=== PATIENT | male | born 1970 | race Two or more races ===

== ENCOUNTER 2019-01-23 20:35 | Emergency (ER) | payer OTHER ==
[~2019-01-23] VITALS: Ht 182.9 cm; Wt 100.0 kg
[2019-01-23] MEDS ORDERED: IBUPROFEN 600 MG TABLET PO ONE (22:45)
[2019-01-23 23:50] VITALS: BP 140/88
== END 2019-01-23 23:53 | disposition home or self-care (01) ==
LOC: EMS 20:37
DX: S83.91XA Sprain of unspecified site of right knee, initial encounter (principal); M25.461 Effusion, right knee; X50.0XXA Overexertion from strenuous movement or load, initial encounter; Y93.89 Activity, other specified; Y92.89 Other specified places as the place of occurrence of the external cause; Y99.8 Other external cause status
CPT/HCPCS: 29505

== ENCOUNTER → 2021-10-31 | Outpatient (CLI) | payer OTHER | END | disposition home or self-care (01) | LOC: RADPV 08:24 | PROVIDERS: ATTEND Family Medicine | DX: K80.20 Calculus of gallbladder without cholecystitis without obstruction (principal); K76.0 Fatty (change of) liver, not elsewhere classified; N28.1 Cyst of kidney, acquired; R10.11 Right upper quadrant pain; Z86.19 Personal history of other infectious and parasitic diseases | CPT/HCPCS: 76700 ==

== ENCOUNTER 2021-12-02 15:51 | Inpatient (IN) | payer OTHER ==
[~2021-12-02] VITALS: Ht 185.4 cm; Wt 98.1 kg
[2021-12-02 17:10] LABS: COVID AG,FIA SOURCE NASOPHARYNGEAL
[2021-12-02 17:14] LABS: BASOPHILS % (AUTO) 0.7 % (0.0-2.0); EOSINOPHILS % (AUTO) 2.6 % (1.0-6.0); HEMATOCRIT 44.2 % (41-53); LYMPHOCYTES # (AUTO) 1.6 K/uL (1.0-4.8); LYMPHOCYTES % (AUTO) 23.9 % (22.0-44.0); MEAN CORPUSCULAR VOLUME 91 fL (80-100); MONOCYTES # (AUTO) 0.7 K/uL (0.1-1.0); MONOCYTES % (AUTO) 10.6 % (2.0-9.0); NEUTROPHILS # (AUTO) 4.1 K/uL (1.8-7.7); NEUTROPHILS % (AUTO) 62.2 % (40.0-70.0); PLATELET COUNT (AUTO) 208 K/uL (150-450); RED BLOOD CELL COUNT(AUTO) 4.85 MIL/uL (4.50-5.90); RED CELL DISTRIBUTION WIDTH 13.6 % (11.5-14.5)
[2021-12-02 17:22] LABS: APPEARANCE,URINE CLEAR (CLEAR); BILIRUBIN,URINE NEGATIVE (NEGATIVE); GLUCOSE, URINE (UA) NEGATIVE (NEGATIVE); KETONES,URINE TRACE mg/dL (NEGATIVE); LEUKOCYTE ESTERASE ,URINE NEGATIVE (NEGATIVE); NITRATE,URINE NEGATIVE (NEGATIVE); OCCULT BLOOD,URINE NEGATIVE (NEGATIVE); PROTEIN,URINE NEGATIVE (NEGATIVE); SPECIFIC GRAVITIY, URINE 1.006 (1.003-1.030); UROBILINOGEN,URINE <=1.0 mg/dL (<=1.0)
[2021-12-02 17:24] LABS: ANION GAP 9 mmol/L (8-16); CALCIUM, TOTAL 9.7 mg/dL (8.8-10.5); CARBON DIOXIDE 27 mmol/L (22-29); CHLORIDE 97 mmol/L (98-107); CREATININE 0.93 mg/dL (0.60-1.30); GLOMERULAR FILTR. RATE CALC > 60 mL/min (>60); GLUCOSE,RANDOM 102 mg/dL (70-110); POTASSIUM 4.6 mmol/L (3.5-5.1); SODIUM SERUM 133 mmol/L (136-145); UREA NITROGEN, BLOOD 12 mg/dL (7-18)
[2021-12-02 17:31] LABS: ALANINE AMINOTRANSFERASE 553 U/L (12-78); ALBUMIN 3.8 g/dL (3.4-5.0); ALKALINE PHOSPHATASE 527 U/L (46-116); ASPARTATE AMINOTRANSFERASE 153 U/L (15-37); LIPASE 454 U/L (73-393); TOTAL PROTEIN, SERUM 8.8 g/dL (6.4-8.2)
[2021-12-02 17:42] LABS: PHOSPHORUS 4.2 mg/dL (2.5-4.9)
[2021-12-02] MEDS ORDERED: IOHEXOL 350 MG/ML 100 ML VIAL ONE (17:47)
[2021-12-02] MEDS ORDERED: SODIUM CHLORIDE 0.9% 100 ML ONE (17:47)
[2021-12-02] MEDS ORDERED: SODIUM CHLORIDE 0.9% 1,000 ML IV ONE ×2 (18:00→21:45)
[2021-12-02 18:28] LABS: PLATELET MORPHOLOGY COMMENT LARGE PLTS PRESENT
[2021-12-02] MEDS ORDERED: PIPERACILLIN/TAZO 3.375 GM/D5W 50 ML IV ONE (19:00)
[2021-12-02] MEDS ORDERED: ONDANSETRON HCL 4 MG/2 ML VIAL IVP PRN ×2 (21:00→21:45)
[2021-12-02] MEDS ORDERED: ACETAMINOPHEN 325 MG TABLET PO PRN ×2 (21:00→21:45)
[2021-12-02] MEDS ORDERED: 0.9% SODIUM CHLORIDE 10 ML SYRINGE IVP PRN (21:00)
[2021-12-02] MEDS ORDERED: BISACODYL 10 MG RECTAL RECTAL SUPPOSITORY PR PRN (21:45)
[2021-12-02] MEDS ORDERED: MAGNESIUM HYDROXIDE SUSPENSION 30 ML UDCUP PO PRN (21:45)
[2021-12-02] MEDS ORDERED: MORPHINE SULFATE 2 MG/ML SYRINGE IVP PRN (21:45)
[2021-12-02] MEDS ORDERED: ZOLPIDEM TARTRATE 5 MG TABLET PO PRN (21:45)
[2021-12-02 23:36] VITALS: BP 123/68
[2021-12-03] MEDS: HEPARIN SODIUM,PORCINE 5,000 UNITS/ML VIAL SQ SCH ×4 (00:29→23:25)
[2021-12-03] MEDS: PIPERACILLIN/TAZO 3.375 GM/D5W 50 ML IV SCH ×4 (02:48→22:28)
[2021-12-03 05:05] VITALS: BP 109/82
[2021-12-03 08:00] VITALS: BP 124/66
[2021-12-03 08:02] LABS: BASOPHILS % (AUTO) 0.7 % (0.0-2.0); EOSINOPHILS % (AUTO) 2.8 % (1.0-6.0); HEMATOCRIT 42.4 % (41-53); HEMOGLOBIN 14.4 g/dL (13.5-17.5); LYMPHOCYTES # (AUTO) 1.7 K/uL (1.0-4.8); LYMPHOCYTES % (AUTO) 32.4 % (22.0-44.0); MEAN CORPUSCULAR HEMOGLOBIN 31.3 pg (26.0-34.0); MEAN CORPUSCULAR VOLUME 92 fL (80-100); MONOCYTES # (AUTO) 0.5 K/uL (0.1-1.0); MONOCYTES % (AUTO) 9.5 % (2.0-9.0); NEUTROPHILS # (AUTO) 2.9 K/uL (1.8-7.7); NEUTROPHILS % (AUTO) 54.6 % (40.0-70.0); PLATELET COUNT (AUTO) 185 K/uL (150-450); RED CELL DISTRIBUTION WIDTH 13.9 % (11.5-14.5)
[2021-12-03 08:16] LABS: ALANINE AMINOTRANSFERASE 440 U/L (12-78); ALBUMIN 3.4 g/dL (3.4-5.0); ALKALINE PHOSPHATASE 443 U/L (46-116); ANION GAP 10 mmol/L (8-16); ASPARTATE AMINOTRANSFERASE 112 U/L (15-37); BILIRUBIN,TOTAL 2.4 mg/dL (0.1-1.0); CALCIUM, TOTAL 9.2 mg/dL (8.8-10.5); CARBON DIOXIDE 25 mmol/L (22-29); CHLORIDE 100 mmol/L (98-107); GLUCOSE,RANDOM 107 mg/dL (70-110); POTASSIUM 4.2 mmol/L (3.5-5.1); SODIUM SERUM 135 mmol/L (136-145); TOTAL PROTEIN, SERUM 7.9 g/dL (6.4-8.2); UREA NITROGEN, BLOOD 12 mg/dL (7-18)
[2021-12-03 08:17] LABS: GLOMERULAR FILTR. RATE CALC > 60 mL/min (>60)
[2021-12-03] MEDS: DOCUSATE SODIUM 100 MG CAPSULE PO SCH ×2 (09:00→21:24)
[2021-12-03] MEDS: PANTOPRAZOLE SODIUM 40 MG DR TABLET PO SCH (09:00)
[2021-12-03] MEDS ORDERED: SODIUM CHLORIDE 0.9% 1,000 ML ONE (10:48)
[2021-12-03] MEDS: HYDROCODONE/ACETAMINOPHEN 5-325 MG TABLET PO PRN (14:40)
[2021-12-03 16:33] VITALS: BP 130/81
[2021-12-03 20:29] VITALS: BP 122/81
[2021-12-03] MEDS ORDERED: MEBROFENIN TC99M/MCL ISOTOPE 1 EA INJ INJ ONE (21:40)
[2021-12-04 00:38] VITALS: BP 113/71
[2021-12-04] MEDS: PIPERACILLIN/TAZO 3.375 GM/D5W 50 ML IV SCH ×4 (02:23→20:26)
[2021-12-04] MEDS ORDERED: MIDAZOLAM HCL 2 MG/2 ML VIAL IVP ONE (05:51)
[2021-12-04] MEDS ORDERED: FentaNYL CITRATE PF 100 MCG/2 ML VIAL IVP ONE (05:51)
[2021-12-04] MEDS ORDERED: ONDANSETRON HCL 4 MG/2 ML VIAL IVP ONE (05:51)
[2021-12-04] MEDS ORDERED: SUCCINYLCHOLINE CHLORIDE 20 MG/ML 10 ML VIAL IVP ONE (05:51)
[2021-12-04] MEDS ORDERED: LIDOCAINE/PF 2% 5 ML VIAL IM ONE (05:51)
[2021-12-04] MEDS ORDERED: ROCURONIUM BROMIDE 10 MG/ML 5 ML VIAL IVP ONE (05:51)
[2021-12-04] MEDS ORDERED: NEOSTIGMINE METHYLSULFATE 1 MG/ML 10 ML VIAL IVP ONE (05:51)
[2021-12-04] MEDS ORDERED: PROPOFOL 1% 20 ML VIAL IVP ONE (05:51)
[2021-12-04] MEDS ORDERED: GLYCOPYRROLATE 0.2 MG/ML VIAL IM ONE (05:51)
[2021-12-04 06:37] VITALS: BP 117/75
[2021-12-04 06:44] LABS: ALANINE AMINOTRANSFERASE 363 U/L (12-78); ALKALINE PHOSPHATASE 398 U/L (46-116); ANION GAP 8 mmol/L (8-16); ASPARTATE AMINOTRANSFERASE 107 U/L (15-37); BILIRUBIN,TOTAL 1.7 mg/dL (0.1-1.0); CALCIUM, TOTAL 8.7 mg/dL (8.8-10.5); CARBON DIOXIDE 25 mmol/L (22-29); CHLORIDE 103 mmol/L (98-107); CREATININE 0.83 mg/dL (0.60-1.30); GLUCOSE,RANDOM 122 mg/dL (70-110); POTASSIUM 3.8 mmol/L (3.5-5.1); SODIUM SERUM 136 mmol/L (136-145); UREA NITROGEN, BLOOD 12 mg/dL (7-18)
[2021-12-04 06:48] LABS: GLOMERULAR FILTR. RATE CALC > 60 mL/min (>60)
[2021-12-04 06:52] LABS: BASOPHILS % (AUTO) 0.6 % (0.0-2.0); EOSINOPHILS % (AUTO) 3.2 % (1.0-6.0); HEMOGLOBIN 13.7 g/dL (13.5-17.5); LYMPHOCYTES # (AUTO) 1.5 K/uL (1.0-4.8); LYMPHOCYTES % (AUTO) 33.2 % (22.0-44.0); MEAN CORPUSCULAR HEMOGLOBIN 30.8 pg (26.0-34.0); MEAN CORPUSCULAR HGB CONC 33.4 G/dL (31.0-37.0); MEAN CORPUSCULAR VOLUME 92 fL (80-100); MONOCYTES # (AUTO) 0.5 K/uL (0.1-1.0); MONOCYTES % (AUTO) 10.8 % (2.0-9.0); NEUTROPHILS # (AUTO) 2.4 K/uL (1.8-7.7); NEUTROPHILS % (AUTO) 52.2 % (40.0-70.0); PLATELET COUNT (AUTO) 179 K/uL (150-450); RED BLOOD CELL COUNT(AUTO) 4.44 MIL/uL (4.50-5.90); RED CELL DISTRIBUTION WIDTH 13.9 % (11.5-14.5)
[2021-12-04] MEDS: HEPARIN SODIUM,PORCINE 5,000 UNITS/ML VIAL SQ SCH ×3 (09:40→23:31)
[2021-12-04] MEDS: DOCUSATE SODIUM 100 MG CAPSULE PO SCH ×2 (09:40→20:26)
[2021-12-04] MEDS: PANTOPRAZOLE SODIUM 40 MG DR TABLET PO SCH (09:40)
[2021-12-04] MEDS: HYDROCODONE/ACETAMINOPHEN 5-325 MG TABLET PO PRN ×2 (09:40→17:07)
[2021-12-04 11:20] VITALS: BP 122/76
[2021-12-04 19:37] VITALS: BP 125/75
[2021-12-04 23:22] VITALS: BP 122/73
[2021-12-05] MEDS: PIPERACILLIN/TAZO 3.375 GM/D5W 50 ML IV SCH ×4 (01:50→21:28)
[2021-12-05 05:28] VITALS: BP 122/75
[2021-12-05 06:11] LABS: BASOPHILS % (AUTO) 1.1 % (0.0-2.0); EOSINOPHILS % (AUTO) 3.8 % (1.0-6.0); HEMATOCRIT 39.9 % (41-53); HEMOGLOBIN 13.6 g/dL (13.5-17.5); LYMPHOCYTES # (AUTO) 1.8 K/uL (1.0-4.8); LYMPHOCYTES % (AUTO) 45.3 % (22.0-44.0); MEAN CORPUSCULAR HEMOGLOBIN 31.3 pg (26.0-34.0); MEAN CORPUSCULAR HGB CONC 34.2 G/dL (31.0-37.0); MEAN CORPUSCULAR VOLUME 92 fL (80-100); MONOCYTES # (AUTO) 0.5 K/uL (0.1-1.0); MONOCYTES % (AUTO) 11.2 % (2.0-9.0); NEUTROPHILS # (AUTO) 1.6 K/uL (1.8-7.7); NEUTROPHILS % (AUTO) 38.6 % (40.0-70.0); PLATELET COUNT (AUTO) 188 K/uL (150-450); RED BLOOD CELL COUNT(AUTO) 4.35 MIL/uL (4.50-5.90); RED CELL DISTRIBUTION WIDTH 13.7 % (11.5-14.5)
[2021-12-05 06:34] LABS: ALANINE AMINOTRANSFERASE 300 U/L (12-78); ALBUMIN 3.1 g/dL (3.4-5.0); ALKALINE PHOSPHATASE 346 U/L (46-116); ANION GAP 9 mmol/L (8-16); ASPARTATE AMINOTRANSFERASE 68 U/L (15-37); BILIRUBIN,TOTAL 1.2 mg/dL (0.1-1.0); CARBON DIOXIDE 25 mmol/L (22-29); CHLORIDE 103 mmol/L (98-107); CREATININE 0.85 mg/dL (0.60-1.30); GLUCOSE,RANDOM 128 mg/dL (70-110); POTASSIUM 3.8 mmol/L (3.5-5.1); SODIUM SERUM 137 mmol/L (136-145); TOTAL PROTEIN, SERUM 7.3 g/dL (6.4-8.2); UREA NITROGEN, BLOOD 11 mg/dL (7-18)
[2021-12-05 06:47] LABS: GLOMERULAR FILTR. RATE CALC > 60 mL/min (>60)
[2021-12-05 08:33] VITALS: BP 128/80
[2021-12-05] MEDS: PANTOPRAZOLE SODIUM 40 MG DR TABLET PO SCH (08:52)
[2021-12-05] MEDS: HEPARIN SODIUM,PORCINE 5,000 UNITS/ML VIAL SQ SCH ×2 (08:52→15:12)
[2021-12-05] MEDS: DOCUSATE SODIUM 100 MG CAPSULE PO SCH ×2 (08:52→21:28)
[2021-12-05] MEDS ORDERED: GADOTERATE MEGLUMINE 10 MMOL/20 ML VIAL IVP ONE (09:33)
[2021-12-05] MEDS ORDERED: SODIUM CHLORIDE 0.9% 1,000 ML ONE (15:13)
[2021-12-05 15:53] VITALS: BP 127/80
[2021-12-05] MEDS ORDERED: LACTULOSE 20 GM/30 ML SOLUTION UDCUP PO PRN (18:45)
[2021-12-05 19:42] VITALS: BP 114/79
[2021-12-05] MEDS: BISACODYL 10 MG RECTAL RECTAL SUPPOSITORY PR SCH (21:28)
[2021-12-05 23:46] VITALS: BP 114/62
[2021-12-06] MEDS: HEPARIN SODIUM,PORCINE 5,000 UNITS/ML VIAL SQ SCH ×2 (00:12→08:18)
[2021-12-06] MEDS: PIPERACILLIN/TAZO 3.375 GM/D5W 50 ML IV SCH ×2 (01:37→08:18)
[2021-12-06 04:15] VITALS: BP 126/72
[2021-12-06 05:49] LABS: BASOPHILS % (AUTO) 0.8 % (0.0-2.0); EOSINOPHILS % (AUTO) 2.7 % (1.0-6.0); HEMATOCRIT 40.9 % (41-53); HEMOGLOBIN 13.8 g/dL (13.5-17.5); LYMPHOCYTES # (AUTO) 1.8 K/uL (1.0-4.8); LYMPHOCYTES % (AUTO) 36.6 % (22.0-44.0); MEAN CORPUSCULAR HEMOGLOBIN 31.3 pg (26.0-34.0); MEAN CORPUSCULAR HGB CONC 33.7 G/dL (31.0-37.0); MEAN CORPUSCULAR VOLUME 93 fL (80-100); MONOCYTES # (AUTO) 0.5 K/uL (0.1-1.0); MONOCYTES % (AUTO) 10.8 % (2.0-9.0); NEUTROPHILS # (AUTO) 2.4 K/uL (1.8-7.7); NEUTROPHILS % (AUTO) 49.1 % (40.0-70.0); PLATELET COUNT (AUTO) 197 K/uL (150-450); RED BLOOD CELL COUNT(AUTO) 4.41 MIL/uL (4.50-5.90); RED CELL DISTRIBUTION WIDTH 13.6 % (11.5-14.5)
[2021-12-06 06:25] LABS: ALANINE AMINOTRANSFERASE 259 U/L (12-78); ALBUMIN 3.1 g/dL (3.4-5.0); ALKALINE PHOSPHATASE 301 U/L (46-116); ANION GAP 11 mmol/L (8-16); ASPARTATE AMINOTRANSFERASE 56 U/L (15-37); CALCIUM, TOTAL 8.9 mg/dL (8.8-10.5); CARBON DIOXIDE 25 mmol/L (22-29); CHLORIDE 102 mmol/L (98-107); GLUCOSE,RANDOM 139 mg/dL (70-110); POTASSIUM 3.9 mmol/L (3.5-5.1); SODIUM SERUM 138 mmol/L (136-145); TOTAL PROTEIN, SERUM 7.2 g/dL (6.4-8.2); UREA NITROGEN, BLOOD 11 mg/dL (7-18)
[2021-12-06 06:43] LABS: GLOMERULAR FILTR. RATE CALC > 60 mL/min (>60)
[2021-12-06] MEDS: BISACODYL 10 MG RECTAL RECTAL SUPPOSITORY PR SCH (07:54)
[2021-12-06] MEDS: DOCUSATE SODIUM 100 MG CAPSULE PO SCH (08:18)
[2021-12-06] MEDS: PANTOPRAZOLE SODIUM 40 MG DR TABLET PO SCH (08:18)
[2021-12-06 08:29] VITALS: BP 118/78
[2021-12-06 12:37] VITALS: BP 135/74
[2021-12-08 17:06] LABS: HEPATITIS C AB (EIA) >11.0 s/co ratio (0.0-0.9); HEPATITIS C RT-PCR,QNT HCV Not Detected IU/mL
== END 2021-12-06 14:30 | DRG 446 ==
LOC: EMS 15:54 → 5S 20:45
PROVIDERS: ADMIT Internal Medicine; ATTEND Internal Medicine
PROC: BF101ZZ Fluoroscopy of Bile Ducts using Low Osmolar Contrast (ICD-10-PCS; 2021-12-03)
PROC: 0F798ZZ Dilation of Common Bile Duct, Via Natural or Artificial Opening Endoscopic (ICD-10-PCS; principal; 2021-12-03 11:30)
DX: K80.62 Calculus of gallbladder and bile duct with acute cholecystitis without obstruction (principal); R31.0 Gross hematuria; Z21 Asymptomatic human immunodeficiency virus [HIV] infection status; B19.20 Unspecified viral hepatitis C without hepatic coma; Z20.822 Contact with and (suspected) exposure to COVID-19; R79.89 Other specified abnormal findings of blood chemistry; Z87.891 Personal history of nicotine dependence
CPT/HCPCS: 71045; 74177; 74183; 76705; 78226; 80053; 80074; 81003; 82248; 83690; 83735; 84100; 85025; 85610; 85730; 87081; 87522; 93005; 99285; A9537; J0330; J1644; J2250; J2270; J2405; J2543; J2704; J3010; J3490; J7030; J7050; Q9967; 36415-L1; 36415-TC